=== PATIENT | male | born 1935 | race Caucasian/White ===

== ENCOUNTER 2020-09-01 11:06 | Emergency (ER) | payer MEDICARE, OTHER ==
[2020-09-01] MEDS ORDERED: Sodium Chloride 0.9% 10 ML Syringe FLUSH PRN (11:07)
[2020-09-01] MEDS ORDERED: Sodium Chloride 0.9% 1,000 ML IV SCH (11:15)
--- NOTE | 2020-09-01 11:20 | EDM.PDOC ---
ED HPI GENERAL MEDICAL PROBLEM - General Stated Complaint: STROKE CODE Time Seen by Provider: 09/01/20 11:07 Source of Information: Reports: Patient, Family - History of Present Illness INITIAL COMMENTS - FREE TEXT/NARRATIVE: Roshan is an 85 y/o male is comes to the ER via POV with his . Yesterday he fell down at home. It sounds like he fell backwards onto his butt, but his had a hard time getting him up and patient pushed his LifeAlert button and his son came over to help him up. Since that time he has had some right leg weakness and more trouble using his walker. 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 Patient also reported to his that he had some "blurry vsion" this AM, but he does note have that upon arrival to the ER. The patient was not really making much of his symptoms, but his who is a retired RN called the clinic and then he was brought to the ER to be seen. - Related Data Allergies Allergy/AdvReac Type Severity Reaction Status Date / Time Penicillins Allergy Hives Verified 04/20/14 10:17 Home Meds: Home Meds . [Unable to Verify Home Med List] 04/20/14 [History] Review of Systems - Review of Systems Review Of Systems: See Below Constitutional: Reports: No Symptoms Eyes: Reports: No Symptoms Ears: Reports: No Symptoms Nose: Reports: No Symptoms Mouth/Throat: Reports: No Symptoms Respiratory: Reports: No Symptoms Cardiovascular: Reports: No Symptoms GI/Abdominal: Reports: No Symptoms Genitourinary: Reports: No Symptoms Musculoskeletal: Reports: No Symptoms Skin: Reports: No Symptoms Neurological: Reports: Difficulty Walking, Weakness (right leg weakness) Psychiatric: Reports: No Symptoms ED EXAM, GENERAL - Physical Exam Exam: See Below General Appearance: Alert, WD/WN, No Apparent Distress (Elderly male.) Eye Exam: Bilateral Eye: PERRL Ears: Normal External Exam, Normal Canal, Other Nose: Normal Inspection, Normal Mucosa Throat/Mouth: Normal Inspection, Normal Lips, Normal Voice Head: Atraumatic, Normocephalic Neck: Normal Inspection, Supple Respiratory/Chest: No Respiratory Distress, Lungs Clear, Chest Non-Tender Cardiovascular: Normal Peripheral Pulses, Regular Rate, Rhythm GI/Abdominal: Normal Bowel Sounds, Soft, Non-Tender (Male) Exam: Deferred Rectal (Males) Exam: Deferred Back Exam: Normal Inspection Extremities: Normal Inspection, Normal Range of Motion, Pedal Edema (2+ pitting edema to lower legs, dry scalely rash with some discoloration to anterior lower leg region noted.) Neurological: Alert, Oriented, CN II-XII Intact, Normal Cognition, Other (NIHSS=2 (facial weakness)) Psychiatric: Normal Affect, Normal Mood Skin Exam: Warm, Dry, Intact, Normal Color Lymphatic: No Adenopathy #1 Interpretation EKG Date: 09/01/20 Time: : Rhythm: A-Flutter Rate (Beats/Min): 69 Crane: Normal P-Wave: Absent Comparison: Change From Previous EKG EKG Interpretation Comments: Compared with previous EKG 04/20/2014-A Flutter Today's Exam=Atrial Flutter with PVcs Course - Vital Signs Text/Narrative:: 1107 Patient was seen on arrival to the ER. Stroke code called. Patient went directly to CT and Head CT WO was done. Labs and EKG were ordered. 1210 CT Head results negative. Clif William was contacted and case presented. Awaiting Stroke Neurologist reviewing the films. BP noted to be 203/103, Labetalol 10mg IVP given. [address] Martines. He advises CTA Head/Neck here in [place]. BP better now. 1320 Old EKG obtained, noted patient was in [place] Flutter on an old EKG from 2014. Awaiting CTA results to consult back with Clif. 1518 Clif William contacted and CTA films arriving there. Plan transfer to [facility] ER but awaiting ER physician for acceptance. 1542 Received call from Clif William that Dr Zev Crain in the ER is accepting the patient for a stroke eval. Patient remained stable until departing with EMS. - Orders/Labs/Meds Orders: Active Orders 24 hr Category Date Time Status EKG Documentation Completion [RC] STAT Care 09/01/20 11:08 Active Ang Neck [CT] Stat Exams 09/01/20 12:33 Ordered UA RFX ROGER AND CULT IF INDIC [URIN] Stat Lab 09/01/20 11:08 Ordered Sodium Chloride 0.9% [Normal Saline] 1,000 ml Med 09/01/20 11:15 Active IV ASDIRECTED Sodium Chloride 0.9% [Saline Flush] Med 09/01/20 11:07 Active 10 ml FLUSH ASDIRECTED PRN Saline Lock Insert [OM.PC] Stat Oth 09/01/20 11:08 Ordered Medication Orders Sodium Chloride (Normal Saline) 1,000 mls @ 30 mls/hr IV ASDIRECTED SONNY Sodium Chloride (Sodium Chloride 0.9% 10 Ml Syringe) 10 ml FLUSH ASDIRECTED PRN PRN Reason: Keep Vein Open Labs: Laboratory Tests 09/01/20 09/01/20 09/01/20 Range/Units 11:11 11:24 11:24 WBC 7.5 (4.0-10.0) x10^3/uL RBC 4.68 (4.5-6.0) x10^6/uL Hgb 15.1 (14.0-18.0) g/dL Hct 43.6 (40.0-52.0) % MCV 93.2 H (78.0-93.0) fL MCH 32.3 H (26.0-32.0) pg MCHC 34.6 (32.0-36.0) g/dL RDW Coeff of Meghan 13.6 (10.0-15.0) % Plt Count 161 (130-400) x10^3/uL Neut % (Auto) 75.4 (50.0-80.0) % Lymph % (Auto) 15.5 L (25.0-50.0) % [place] % (Auto) 8.2 (2.0-11.0) % Eos % (Auto) 0.4 (0.0-4.0) % Baso % (Auto) 0.5 (0.2-1.2) % PT (9.9-12.5) SEC INR (2.0-3.5) APTT (25.6-32.8) SEC Sodium 140 (136-145) mmol/L Potassium 3.8 (3.5-5.1) mmol/L Chloride 106 (98-107) mmol/L Carbon Dioxide 27 (21-32) mmol/L Anion Gap 10.8 (5-15) mmol/L BUN 21 H (7-18) mg/dL Creatinine 1.2 (0.70-1.30) mg/dL Est Cr Clr Drug Dosing TNP Estimated GFR (MDRD) 57 Glucose 124 H (70-99) mg/dL POC Glucose 113 H (70-99) mg/dL Calcium 8.5 (8.5-10.1) mg/dL Corrected Calcium 8.9 (8.5-10.1) mg/dL Magnesium 2.3 (1.8-2.4) mg/dL Total Bilirubin 1.2 H (0.2-1.0) mg/dL AST 20 (15-37) U/L ALT 40 (16-63) U/L Alkaline Phosphatase 87 (46-116) U/L Troponin I High Sens 44 (<=76) ng/L Total Protein 7.5 (6.4-8.2) g/dL Albumin 3.5 (3.4-5.0) g/dL Globulin 4.0 g/dL Albumin/Globulin Ratio 0.88 Ethyl Alcohol < 3 (0-3) mg/dL 09/01/20 Range/Units 11:24 WBC (4.0-10.0) x10^3/uL RBC (4.5-6.0) x10^6/uL Hgb (14.0-18.0) g/dL Hct (40.0-52.0) % MCV (78.0-93.0) fL MCH (26.0-32.0) pg MCHC (32.0-36.0) g/dL RDW Coeff of Meghan (10.0-15.0) % Plt Count (130-400) x10^3/uL Neut % (Auto) (50.0-80.0) % Lymph % (Auto) (25.0-50.0) % [place] % (Auto) (2.0-11.0) % Eos % (Auto) (0.0-4.0) % Baso % (Auto) (0.2-1.2) % PT 11.0 (9.9-12.5) SEC INR 1.0 L (2.0-3.5) APTT 23.8 L (25.6-32.8) SEC Sodium (136-145) mmol/L Potassium (3.5-5.1) mmol/L Chloride (98-107) mmol/L Carbon Dioxide (21-32) mmol/L Anion Gap (5-15) mmol/L BUN (7-18) mg/dL Creatinine (0.70-1.30) mg/dL Est Cr Clr Drug Dosing Estimated GFR (MDRD) Glucose (70-99) mg/dL POC Glucose (70-99) mg/dL Calcium (8.5-10.1) mg/dL Corrected Calcium (8.5-10.1) mg/dL Magnesium (1.8-2.4) mg/dL Total Bilirubin (0.2-1.0) mg/dL AST (15-37) U/L ALT (16-63) U/L Alkaline Phosphatase (46-116) U/L Troponin I High Sens (<=76) ng/L Total Protein (6.4-8.2) g/dL Albumin (3.4-5.0) g/dL Globulin g/dL Albumin/Globulin Ratio Ethyl Alcohol (0-3) mg/dL Meds: Medications Generic Name Dose Route Start Last Admin Trade Name Freq PRN Reason Stop Dose Admin Sodium Chloride 1,000 mls @ 30 mls/hr 09/01/20 11:15 Normal Saline IV ASDIRECTED SONNY Sodium Chloride 10 ml 09/01/20 11:07 Sodium Chloride 0.9% 10 Ml Syringe FLUSH ASDIRECTED PRN Keep Vein Open Discontinued Medications Generic Name Dose Route Start Last Admin Trade Name Freq PRN Reason Stop Dose Admin Iopamidol 100 ml 09/01/20 12:53 09/01/20 13:32 Iopamidol 612 Mg/Ml 100 Ml Bottle IVPUSH 09/01/20 12:54 100 ml ONETIME ONE Administration Labetalol HCl 10 mg 09/01/20 12:35 09/01/20 12:45 Labetalol 20 Mg/4 Ml Syringe IVPUSH 09/01/20 12:36 10 mg NOW ONE Administration Protocol - Radiology Interpretation Free Text/Narrative:: Head CT WO=no acute findings CTA Head/Neck= Departure - Departure Time of Disposition: 15:44 Disposition: DC/Tfer to Acute Hospital 02 Condition: Good Clinical Impression: Right leg weakness, Weakness on left side of face, History of CVA (cerebrovascular accident) Atrial flutter Qualifiers: Atrial flutter type: unspecified Qualified Code(s): I48.92 - Unspecified atrial flutter - Discharge Information Referrals: Mariya Omalley DO [Primary Care Provider] - Forms: Interfacility Transfer EMTALA Additional Instructions: -Transfer to [facility] ER to Dr Zev Crain via [facility] - My Orders Last 24 Hours: My Active Orders 09/01/20 11:07 Sodium Chloride 0.9% [Saline Flush] 10 ml FLUSH ASDIRECTED PRN 09/01/20 11:08 EKG Documentation Completion [RC] STAT UA RFX ROGER AND CULT IF INDIC [URIN] Stat Saline Lock Insert [OM.PC] Stat 09/01/20 11:15 Sodium Chloride 0.9% [Normal Saline] 1,000 ml IV ASDIRECTED 09/01/20 12:33 Ang Neck [CT] Stat - Assessment/Plan Last 24 Hours: My Active Orders 09/01/20 11:07 Sodium Chloride 0.9% [Saline Flush] 10 ml FLUSH ASDIRECTED PRN 09/01/20 11:08 EKG Documentation Completion [RC] STAT UA RFX ROGER AND CULT IF INDIC [URIN] Stat Saline Lock Insert [OM.PC] Stat 09/01/20 11:15 Sodium Chloride 0.9% [Normal Saline] 1,000 ml IV ASDIRECTED 09/01/20 12:33 Ang Neck [CT] Stat Assessment:: 1)Right Leg Weakness 2)Left Facial Droop 3)Hx CVA 4)Atrial Flutter Plan: As above
[2020-09-01 11:50] LABS: PTT,PARTIAL THROMBOPLSTIN TIME 23.8 SEC (25.6-32.8)
--- NOTE | 2020-09-01 12:03 | CT ---
[id number] CT/CT Head Stroke Protocol EXAM: CT Head Stroke Protocol CLINICAL DATA: LEFT FACIAL DROOP,RIGHT LEG WEAKNESS. COMPARISON STUDY: None FINDINGS: No intracranial hemorrhage, extra-axial fluid collection, mass, or acute ischemia. No hydrocephalus. Bilateral symmetric central predominant diffuse parenchymal atrophy throughout both cerebral hemispheres. Additionally there is subcortical and periventricular white matter hypodensity are both cerebral hemispheres. This is symmetric in distribution. Chronic bilateral basal ganglia lacunar infarctions. Calcified atherosclerotic plaque in the cranial segments of the internal carotid and vertebral arteries. Calvarium intact. Paranasal sinuses and mastoid air cells are clear. IMPRESSION: No acute findings in the brain. Chronic findings are described above. Results relayed to Roz Elena. Tj Sanders MD 09/01/20 1204 Thank you for allowing us to participate in the care of your patient.
[2020-09-01 12:05] LABS: ANION GAP 10.8 mmol/L (5-15); CHLORIDE,CL 106 mmol/L (98-107); SODIUM,NA 140 mmol/L (136-145)
[2020-09-01] MEDS: Labetalol 20 MG/4 ML Syringe IVPUSH ONE (12:45)
[2020-09-01] MEDS: Iopamidol 612 MG/ML 100 ML Bottle IVPUSH ONE (13:32)
--- NOTE | 2020-09-01 14:26 | CT ---
[id number] CT/CTA Head Neck Exam: CTA Head Neck Clinical Data: NEUROLOGIC DEFICIT COMPARISON: CORRELATION IS MADE WITH THE EARLIER PLAIN CT BRAIN FINDINGS: There is no intracranial large vessel occlusion There is about 50% narrowing of the distal right middle cerebral artery before the bifurcation on image 51, series 10. There is about 50% narrowing of the proximal cervical right internal carotid There is no significant narrowing of the proximal cervical left internal carotid There is patency of the vertebral basilar system bilaterally. There is atheromatous disease of the common carotid bifurcation on both sides IMPRESSION: NO INTRACRANIAL LARGE VESSEL OCCLUSION Luis Felipe Veras MD 09/01/20 3019 Thank you for allowing us to participate in the care of your patient.
== END 2020-09-01 16:00 | disposition short-term general hospital (02) ==
LOC: VM.ED 11:06
DX: I48.92 Unspecified atrial flutter (principal); M62.81 Muscle weakness (generalized); R29.810 Facial weakness; Z86.73 Personal history of transient ischemic attack (TIA), and cerebral infarction without residual deficits; Z88.0 Allergy status to penicillin
CPT/HCPCS: 70450; 70496; 70498; 80053; 80307; 82947; 83735; 84484; 85025; 85610; 85730; 93005; 93010; 96374; 99284; 99285-25; J3490; Q9967